=== PATIENT | male | born 1940 | race Caucasian/White ===

== ENCOUNTER 2022-01-01 21:54 | Inpatient (IN) | payer OTHER ==
[~2022-01-01] VITALS: Ht 167.6 cm; Wt 61.7 kg
[2022-01-01] MEDS ORDERED: ONDANSETRON HCL 4 MG/2 ML VIAL IV ONE (22:15)
[2022-01-01] MEDS ORDERED: ASPI-543 PO (22:34)
[2022-01-01] MEDS ORDERED: FURO40TA4 PO (22:34)
[2022-01-01] MEDS ORDERED: FOLI1TAB6 PO (22:34)
[2022-01-01] MEDS ORDERED: MAGN400S25 PO (22:34)
[2022-01-01 22:43] LABS: Basophils # (auto) 0 10 ^3/uL (0-0.2); Basophils % (auto) 0.5 % (0.0-2.0); Eosinophils # (auto) 0.2 10 ^3/uL (0-0.8); Eosinophils % (auto) 3.5 % (0.0-7.0); Hemoglobin 14.8 g/dL (13.5-17.5); Lymphocytes # (auto) 0.7 10 ^3/uL (0.4-5.4); Lymphocytes % (auto) 11.4 % (10.0-50.0); Mean Corpuscular Hemoglobin 34.3 pg (28.0-32.0); Mean Corpuscular Hgb Conc. 34.4 g/dL (32.0-36.0); Mean Corpuscular Volume 99.9 fL (80.0-100.0); Monocytes # (auto) 0.7 10 ^3/uL (0-1.3); Neutrophils # (auto) 4.9 10 ^3/uL (1.6-8.6); Neutrophils % (auto) 74.6 % (37.0-80.0); Red Blood Cells 4.31 10^6/uL (4.5-5.90); Red Cell Distribution Width 13.4 % (11.8-14.3); White Blood Cell 6.5 10^3/uL (4.4-10.8)
[2022-01-01 22:55] LABS: INR 1.08 (0.9-1.15); Partial Thromboplastin Time 25.7 sec (24.6-33.4)
[2022-01-01 23:21] LABS: Albumin 3.3 g/dL (3.4-5.0); BUN/Creatinine Ratio 17.2; Bilirubin, Total 0.4 mg/dL (0.2-1.0); Calcium 8.3 mg/dL (8.5-10.1); Magnesium 2.8 mg/dL (1.6-2.6); Potassium 3.8 mmol/L (3.5-5.1); Total Protein 6.2 g/dL (6.4-8.2)
[2022-01-01] MEDS ORDERED: AZITHROMYCIN 500MG/ 250ML 250 ML IV ONE (23:45)
[2022-01-02] MEDS ORDERED: MIDODRINE HCL 10 MG TAB PO ONE (01:00)
[2022-01-02] MEDS ORDERED: MORPHINE SULFATE INJ 2 MG/ml SYRG IV PRN (01:00)
[2022-01-02] MEDS ORDERED: ACETAMINOPHEN 325 MG TAB PO PRN (01:00)
[2022-01-02] MEDS ORDERED: NITROGLYCERIN 0.4 MG SL TAB SL PRN (01:00)
[2022-01-02] MEDS ORDERED: ONDANSETRON HCL 4 MG/2 ML VIAL IV PRN (01:00)
[2022-01-02] MEDS: PANTOPRAZOLE 40 MG TAB PO SCH (06:16)
[2022-01-02] MEDS: MIDODRINE HCL 10 MG TAB PO SCH ×2 (08:30→22:23)
[2022-01-02] MEDS: ASPirin 81 mg TAB PO SCH (08:31)
[2022-01-02 09:22] LABS: BUN/Creatinine Ratio 17.6; Calcium 8.1 mg/dL (8.5-10.1); Potassium 3.3 mmol/L (3.5-5.1)
[2022-01-02] MEDS ORDERED: AZITHROMYCIN 500MG/ 250ML 250 ML IV SCH (22:00)
[2022-01-02] MEDS ORDERED: ATORVASTATIN 20 MG TAB PO SCH (22:00)
[2022-01-03 04:17] LABS: Urine Bacteria NONE SEEN /hpf (None Seen); Urine Blood Negative /uL (Negative); Urine Specific Gravity 1.008 (1.001-1.035); Urine WBC <1 /hpf (0 - 3)
[2022-01-03 08:20] LABS: Basophils # (auto) 0.1 10 ^3/uL (0-0.2); Lymphocytes # (auto) 0.8 10 ^3/uL (0.4-5.4); Monocytes % (auto) 9.3 % (0.0-12.0); Neutrophils % (auto) 75.4 % (37.0-80.0)
[2022-01-03 08:24] LABS: Basophils % (auto) 0.8 % (0.0-2.0); Eosinophils # (auto) 0.3 10 ^3/uL (0-0.8); Eosinophils % (auto) 3.6 % (0.0-7.0); Hematocrit 44.7 % (41.0-53.0); Hemoglobin 15.2 g/dL (13.5-17.5); Lymphocytes % (auto) 10.9 % (10.0-50.0); Mean Corpuscular Hemoglobin 33.9 pg (28.0-32.0); Mean Corpuscular Volume 99.7 fL (80.0-100.0); Monocytes # (auto) 0.7 10 ^3/uL (0-1.3); Neutrophils # (auto) 5.4 10 ^3/uL (1.6-8.6); Red Blood Cells 4.48 10^6/uL (4.5-5.90); White Blood Cell 7.2 10^3/uL (4.4-10.8)
[2022-01-03 08:44] LABS: BUN/Creatinine Ratio 21.4; Bilirubin, Total 0.9 mg/dL (0.2-1.0); Calcium 9.4 mg/dL (8.5-10.1); Potassium 4.3 mmol/L (3.5-5.1); Total Protein 7.4 g/dL (6.4-8.2)
[2022-01-03 09:00] VITALS: BP 131/77
[2022-01-03] MEDS: PANTOPRAZOLE 40 MG TAB PO SCH (09:10)
[2022-01-03] MEDS: ASPirin 81 mg TAB PO SCH (09:10)
[2022-01-03] MEDS: MIDODRINE HCL 10 MG TAB PO SCH (09:13)
[2022-01-03 10:13] VITALS: BP 114/69
[2022-01-03] MEDS ORDERED: MID10T PO (11:44)
[2022-01-03 12:00] VITALS: BP 119/55
== END 2022-01-03 15:10 | disposition home or self-care (01) | DRG 315 ==
LOC: EDBD 21:54 → ER 21:57 → TELE 01-02 00:55 → TELE-CENTR 01-03 09:47
PROVIDERS: ADMIT Nurse Practitioner; ATTEND Hospitalist
DX: T82.119A Breakdown (mechanical) of unspecified cardiac electronic device, initial encounter (principal); I13.0 Hypertensive heart and chronic kidney disease with heart failure and stage 1 through stage 4 chronic kidney disease, or unspecified chronic kidney disease; N17.9 Acute kidney failure, unspecified; I50.22 Chronic systolic (congestive) heart failure; I25.5 Ischemic cardiomyopathy; Z20.822 Contact with and (suspected) exposure to COVID-19; E78.5 Hyperlipidemia, unspecified; E87.6 Hypokalemia; I25.10 Atherosclerotic heart disease of native coronary artery without angina pectoris; N18.30 Chronic kidney disease, stage 3 unspecified; Z95.5 Presence of coronary angioplasty implant and graft; Z95.1 Presence of aortocoronary bypass graft; Z95.810 Presence of automatic (implantable) cardiac defibrillator; I95.9 Hypotension, unspecified
CPT/HCPCS: 36415; 71045; 76775; 80048; 80053; 81001; 83735; 83880; 84443; 84484; 85025; 85379; 85610; 85730; 87426; 93005; 93306; 96365; G0378